=== PATIENT | female | born 1965 | race Hispanic/Latino ===

== ENCOUNTER 2018-04-28 10:36 | Emergency (ER) | payer BC, OTHER ==
[2018-04-28] MEDS ORDERED: Ketorolac Tromethamine 30 MG/ML VIAL ONE (10:49)
[2018-04-28] MEDS ORDERED: Ondansetron HCl/PF 4 MG/2 ML Vial ONE (10:50)
[2018-04-28 10:55] LABS: Bilirubin Negative (Negative); Blood, Urine Small (Negative); Clarity Clear (Clear); Glucose, Urine (Dipstick) Negative (Negative); Leukocyte Trace (Negative); Nitrite Negative (Negative); Protein, Urine (Dipstick) Negative (Neg-Trace); Specific Gravity, Urine 1.015 (1.005-1.030); Urobilinogen 0.2 mg/dL (0.2-1.0)
[2018-04-28 11:01] LABS: RBC/HPF 0-3 HPF (0-3); Squamous Epithelial 0-3 HPF (0-3); WBC/HPF 0-3 HPF (0-3)
[2018-04-28 11:02] LABS: Bacteria/HPF 2+ HPF (None Seen)
[2018-04-28 11:14] LABS: #Basophils 0.1 thou/uL (0.0-0.2); #Eosinphils 0.2 thou/uL (0.0-0.7); #Lymphocytes 1.7 thou/uL (1.20-3.40); #Monocytes 0.3 thou/uL (0.11-0.59); #Neutrophils 5.7 thou/uL (1.40-6.50); %Basophils 0.8 % (0.0-1.0); %Monocytes 3.9 % (0.0-10.0); %Neutrophils 72.2 % (42.0-75.0); Hemoglobin 14.9 g/dL (12.0-16.0); Mean Corpuscular HGB CONC 35.3 g/dL (32.0-36.0); Mean Corpuscular Hemoglobin 31.2 pg (27.0-31.0); Mean Corpuscular Volume 88.5 fL (78.0-98.0); Platelet Count 201 thou/uL (130-400); RBC Distribution Width 10.8 % (11.5-14.5); Red Blood Cell (RBC) Count 4.78 mill/uL (4.20-5.40); White Blood Cell (WBC) Count 7.9 thou/uL (4.8-10.8)
[2018-04-28 11:22] LABS: ALT (SGPT) 125 U/L (8-55); AST (SGOT) 108 U/L (5-34); Albumin 4.2 g/dL (3.5-5.0); Alkaline Phosphatase 102 U/L (40-150); Anion Gap 13 mmol/L (10-20); BUN (Urea Nitrogen) 13 mg/dL (9.8-20.1); Bilirubin, Total 0.5 mg/dL (0.2-1.2); Calc. Creatinine Clearance 0 mL/min (70-130); Calcium 9.7 mg/dL (7.8-10.44); Carbon Dioxide 28 mmol/L (22-29); Chloride 103 mmol/L (98-107); Estimated GFR-MDRD Greater than 90; Globulin 3.3 g/dL (2.4-3.5); Glucose 104 mg/dL (70-105); Lipase 148 U/L (8-78); Potassium 3.1 mmol/L (3.5-5.1); Protein, Total 7.5 g/dL (6.0-8.3); Sodium 141 mmol/L (136-145)
--- NOTE | 2018-04-28 14:06 | CT ---
CT OF THE ABDOMEN AND PELVIS: DATE: 04/28/18. COMPARISON: 02/06/11. HISTORY: Right upper quadrant pain. TECHNIQUE: Serial axial CT imaging at 5 mm intervals from the lung bases through the pubic symphysis with IV con trast. Coronal reformatted imaging obtained. FINDINGS: Imaged lung bases are unremarkable. No free intraperitoneal air or fluid is seen. There are cholecystectomy clips present. The hepatic parenchyma is hypodense suggesting steatosis. No focal liver lesion is identified. The spleen, pancreas, and adrenal glands are unremarkable. Multiple intrarenal calculi are noted bilaterally. There are 2 prominent stones within the lower carol e of the left kidney measuring 1.3 and 0.9 cm respectively. There is a punctate mid pole renal stone posteriorly on the right. There is a prominent central stone within the right renal mid pole measur ing up to 1.7 cm in craniocaudal dimension. There is lobulated hypodensity within the renal collecting system superiorly on the right which could represent parapelvic cyst formation and/or a dilated upper pole renal calyx on the basis of the prom inent stone within the mid pole of the right kidney. The stone within the mid pole right kidney and the prominence of the upper renal collecting system on the right versus parapelvic cyst is a stable finding when compared to the 02/06/11 CT exam. The 2 re nal calculi on the left are stable as well when compared to the 2010 exam. Limited assessment of the bowel without oral contrast media demonstrates no evidence for bowel inflammatory change or obstruct ion. The appendix appears within normal limits. The vascular structures appear patent. A splenic artery aneurysm is suspected posterior to the mid b eric of the pancreas on axial image 34 and coronal image 73 measuring in the 1.4-1.6 cm range. No lym phadenopathy is noted. The osseous structures demonstrate no acute findings. IMPRESSION: 1. Stable prominent renal stone disease bilaterally. 2. Incidentally noted splenic artery aneurysm. 3. No free intraperitoneal air, evidence of bowel obstruction, or evidence of appendicitis. POS: [facility]
[2018-04-28] MEDS ORDERED: Iopamidol 370 76% 100 ML VIAL ONE (17:02)
== END 2018-04-28 12:46 | disposition home or self-care (01) ==
LOC: SCSER 10:36
DX: N20.0 Calculus of kidney (principal); I10 Essential (primary) hypertension
CPT/HCPCS: 74177; 80053; 81003; 81015; 83690; 85025; 96361; 96374; 96375; J1885; J2405

== ENCOUNTER 2018-05-12 16:48 | Outpatient (CLI) | payer BC | END 2018-05-12 16:49 | disposition home or self-care (01) | LOC: BICRAD 16:48 | PROVIDERS: ATTEND Urology | DX: N20.0 Calculus of kidney (principal); Z90.49 Acquired absence of other specified parts of digestive tract | CPT/HCPCS: 74018 ==

== ENCOUNTER 2018-10-21 15:30 | Outpatient (CLI) | payer BC | END 2018-10-21 15:31 | disposition home or self-care (01) | LOC: BICMAMMO 15:30 | PROVIDERS: ATTEND Family Medicine | DX: Z12.31 Encounter for screening mammogram for malignant neoplasm of breast (principal) | CPT/HCPCS: 77063; 77067 ==

== ENCOUNTER 2018-10-21 15:54 | Outpatient (CLI) | payer BC ==
--- NOTE | 2018-10-21 16:54 | RAD ---
PA AND LATERAL CHEST: 10/21/18 INDICATION: Fatigue and chest pain. COMPARISON: Prior study dated 12/30/14. FINDINGS: No consolidation, pleural effusion, pneumothorax is evident. Heart size is upper limits of normal. Ch olecystectomy clips seen within the right upper quadrant. No acute osseous abnormality is evident. IMPRESSION: No definite acute cardiopulmonary abnormality. POS: [facility]
== END 2018-10-21 15:55 | disposition home or self-care (01) ==
LOC: BICRAD 15:54
PROVIDERS: ATTEND Family Medicine
DX: R53.83 Other fatigue (principal); I10 Essential (primary) hypertension
CPT/HCPCS: 71046

== ENCOUNTER 2018-10-29 07:06 | Outpatient (CLI) | payer BC ==
--- NOTE | 2018-10-29 08:16 | ULT ---
ULTRASOUND ABDOMEN COMPLETE HISTORY: Pain. TECHNIQUE: Warren-scale ultrasound evaluation of the liver, gallbladder, spleen, pancreas, common bile duct, kidne ys, abdominal aorta, and inferior vena cava (IVC). FINDINGS: There is no focal hepatic lesion. There is mild increased hepatic echogenicity of the hepatic parenc hyma which can be seen in the setting of steatosis. Focal area of decreased echogenicity of the righ t kidney indicates cyst formation. There is also a suggestion of dilatation of the right renal calyc es. Findings may relate to a combination of mild hydronephrosis with superimposed parapelvic cyst fo rmation, although difficult to reliably discern on the basis of this exam. The left kidney is unrema rkable. No focal splenic abnormality is seen. There is no ascites. Gallbladder is surgically absen t. The common duct is unremarkable. Pancreas is partially obscured, limiting assessment. IMPRESSION: Findings which may reflect mild right hydronephrosis with superimposed parapelvic cyst formation. If there is concern for a distal obstructing etiology, consider a followup CT abdomen and pelvis to fur ther delineate in light of the patient's history of pain. POS: [facility]
--- NOTE | 2018-10-29 09:00 | ULT ---
TRANSABDOMINAL AND TRANSVAGINAL PELVIC ULTRASOUND: HISTORY: Abdominal pain. Pelvic pain. FINDINGS: The uterus measures 7.3 x 3.7 x 4.5 cm, with a 1 x 1.3 x 1.4 cm mass, likely fibroid. The endometriu m measures 7 mm in thickness. No free fluid is seen in the endometrial cavity. The ovaries are not visualized. There are nabothian cysts in the cervix. No adnexal mass or free fluid in the cul-de-sa c is identified. IMPRESSION: Findings suggestive of a 1.4 cm uterine fibroid. POS: [facility]
== END 2018-10-29 07:07 | disposition home or self-care (01) ==
LOC: BICULT 07:06
PROVIDERS: ATTEND Family Medicine
DX: N95.0 Postmenopausal bleeding (principal); R10.13 Epigastric pain; I10 Essential (primary) hypertension; R53.83 Other fatigue
CPT/HCPCS: 76700; 76856

== ENCOUNTER 2019-10-07 16:09 | Outpatient (CLI) | payer BC ==
--- NOTE | 2019-10-07 17:02 | RAD ---
EXAM: XR Abdomen 1 View/KUB PROVIDED CLINICAL HISTORY: Epigastric abdominal pain and fatigue. Patient states right upper quadrant abdominal pain for 3 weeks COMPARISON: CT abdomen and pelvis on 02/26/2018. FINDINGS: There is elevation of the right hemidiaphragm. Limited visualized lung bases are clear. Surgical clips overlie the right upper quadrant. There are calcifications overlying the renal shadows bilaterally most compatible with renal calculi which were seen on prior CT exam. No definite suspicious calcifications are seen along the course of either ureter bilaterally. Multiple calcifications are seen overlying the pelvis compatible with injection granulomata seen on p rior CT exam. There is a small amount of retained fecal material seen throughout the colon. Bowel gas pattern is ot herwise nonspecific IMPRESSION: 1. Bilateral nephrolithiasis. 2. Nonspecific bowel gas pattern.
== END 2019-10-07 16:10 | disposition home or self-care (01) ==
LOC: BICRAD 16:09
PROVIDERS: ATTEND Family Medicine
DX: N13.0 Hydronephrosis with ureteropelvic junction obstruction (principal); R10.13 Epigastric pain; R53.83 Other fatigue; N20.0 Calculus of kidney
CPT/HCPCS: 74018

== ENCOUNTER 2019-10-23 14:30 | Outpatient (CLI) | payer BC ==
--- NOTE | 2019-10-23 16:33 | BD ---
Exam: DEXA Bone Density 10/23/19 HISTORY: Postmenopausal. Lumbar Spine: BMD (g/cm2) T-SCORE L1 0.833 -1.4 L2 0.831 -1.8 L3 0.870 -1.9 L4 0.824 -2.2 L1-L4 0.839 -1.9 Left Femoral Neck: 0.772 -0.7 Total Femur: 0.935 -0.1 Impression: 1. Normal bone mineral density in the left femoral neck. Osteopenia of the lumbar spine. Ten year fracture risk for major osteoporotic fracture is 2.5% and a hip fracture 0.1%. These fractur e probabilities are calculated for an untreated patient. POS: [facility]
--- NOTE | 2019-10-29 13:27 | MMO ---
Bilateral MAMMO Bilat Screen [facility]. CLINICAL HISTORY: Patient is 54 years old and is seen for screening. The patient has no family history of breast cancer. The patient has no personal history of cancer. VIEWS: The views performed were: bilateral craniocaudal with tomosynthesis and bilateral mediolateral oblique with tomosynthesis. FILMS COMPARED: The present examination has been compared to prior imaging studies performed at [facility] on 05/18/2014, 07/22/2015, 08/01/2016 and 10/21/2018. This study has been interpreted with the assistance of computer-aided detection. MAMMOGRAM FINDINGS: The breasts are heterogeneously dense, which could obscure a lesion on mammography. There are no suspicious masses, suspicious calcifications, or new areas of architectural distortion. IMPRESSION: THERE IS NO MAMMOGRAPHIC EVIDENCE OF MALIGNANCY. A ROUTINE FOLLOW-UP MAMMOGRAM IN 1 YEAR IS RECOMMENDED. THE RESULTS OF THIS EXAM WERE SENT TO THE PATIENT. ACR BI-RADS Category 1 - Negative MAMMOGRAPHY NOTE: 1. A negative mammogram report should not delay a biopsy if a dominant of clinically suspicious mass is present. 2. Approximately 10% to 15% of breast cancers are not detected by mammography. 3. Adenosis and dense breasts may obscure an underlying neoplasm. Reported by: SANTIAGO EDWARD MD Electonically Signed: [id number]
== END 2019-10-23 14:31 | disposition home or self-care (01) ==
LOC: BICMAMMO 14:30
PROVIDERS: ATTEND Family Medicine
DX: Z12.31 Encounter for screening mammogram for malignant neoplasm of breast (principal); Z13.820 Encounter for screening for osteoporosis; M85.88 Other specified disorders of bone density and structure, other site
CPT/HCPCS: 77063; 77067; 77080

== ENCOUNTER 2021-07-25 15:49 | Outpatient (CLI) | payer BC | END 2021-07-25 15:50 | disposition home or self-care (01) | LOC: BICMAMMO 15:49 | PROVIDERS: ATTEND Family Medicine | DX: Z12.31 Encounter for screening mammogram for malignant neoplasm of breast (principal) | CPT/HCPCS: 77063; 77067 ==

== ENCOUNTER 2021-09-13 19:26 | Emergency (ER) | payer BC | END 2021-09-13 21:11 | disposition home or self-care (01) | LOC: ERS 19:26 | DX: R05.9 Cough, unspecified (principal); R50.9 Fever, unspecified; M79.10 Myalgia, unspecified site; Z20.822 Contact with and (suspected) exposure to COVID-19; I10 Essential (primary) hypertension; Z79.899 Other long term (current) drug therapy | CPT/HCPCS: 71045; U0003; U0005 ==

== ENCOUNTER 2023-01-18 15:21 | Outpatient (CLI) | payer OTHER | END 2023-01-18 15:22 | disposition home or self-care (01) | LOC: BICMAMMO 15:21 | PROVIDERS: ATTEND Family Medicine | DX: Z12.31 Encounter for screening mammogram for malignant neoplasm of breast (principal) | CPT/HCPCS: 77063; 77067 ==